=== PATIENT | male | born 1955 | race Caucasian/White ===

== ENCOUNTER 2018-10-02 17:54 | Emergency (ER) | payer OTHER ==
[2018-10-02 18:17] VITALS: BP 133/88
--- NOTE | 2018-10-02 18:57 | ED ---
GI/ HPI - HPI Summary HPI Summary: 63-year-old male with a history of neurogenic bladder since surgery in 1992 presents with slight discomfort over his bladder for the last several days. He states that one week ago he developed cough and cold symptoms and that he has been taking medications such as Sudafed since that time. His cough and cold symptoms have improved. He denies any dysuria or hematuria a persistent pain over his bladder just below the belly button. He is able to urinate but only small amounts. He has minimal discomfort at present. He denies any left or right lower quadrant pain. He previously had his appendix removed. He is not currently on any medications for prostate. - History of Current Complaint Chief Complaint: UCGU Time Seen by Provider: 10/02/18 18:31 Stated Complaint: BLADDER PAIN Hx Obtained From: Patient Pain Intensity: 4 - Allergy/Home Medications Allergies/Adverse Reactions: Allergies Allergy/AdvReac Type Severity Reaction Status Date / Time No Known Allergies Allergy Verified 07/21/13 09:30 PMH/Surg Hx/FS Hx/Imm Hx Endocrine/Hematology History: Denies: Hx Diabetes Cardiovascular History: Reports: Hx Angina - Chest pain with exercise, complete workup ruled out cardiac problem Denies: Hx Coronary Artery Disease, Hx Hypercholesterolemia, Hx Hypertension , Hx Myocardial Infarction, Hx Valvular Heart Disease Respiratory History: Denies: Hx Asthma, Hx Chronic Obstructive Pulmonary Disease (COPD) GI History: Reports: Other GI Disorders - Hx GERD History: Reports: Other Problems/Disorders - neurogenic bladder not requiring medication - Surgical History Surgery Procedure, Year, and Place: Appendectomy age 7, tonsils 1993 Infectious Disease History: No Infectious Disease History: Denies: Traveled Outside the [place] in Last 30 Days - Family History Known Family History: Positive: Non-Contributory - Social History Occupation: Employed Full-time Alcohol Use: Daily Alcohol Amount: 2 allison Substance Use Type: Reports: None Smoking Status (MU): Never Smoked Tobacco Review of Systems Negative: Fever, Chills Eyes: Negative Positive: Nasal Discharge Cardiovascular: Negative Respiratory: Negative Positive: Abdominal Pain. Negative: Vomiting, Diarrhea, Nausea Positive: frequency. Negative: burning, dysuria, discharge, incontinence, pain , urgency All Other Systems Reviewed And Are Negative: Yes Physical Exam Triage Information Reviewed: Yes Vital Signs On Initial Exam: Initial Vitals Temp Pulse Resp BP Pulse Ox 98.8 F 66 12 133/88 97 10/02/18 18:11 10/02/18 18:11 10/02/18 18:11 10/02/18 18:11 10/02/18 18:11 Vital Signs Reviewed: Yes Appearance: Positive: Well-Appearing, No Pain Distress, Well-Nourished Skin: Positive: Warm, Skin Color Reflects Adequate Perfusion, Dry Eyes: Positive: EOMI ENT: Positive: Nasal drainage, TMs normal. Negative: Pharyngeal erythema Neck: Positive: Supple, Nontender Respiratory/Lung Sounds: Positive: Clear to Auscultation Cardiovascular: Positive: RRR Abdomen Description: Positive: Soft, Other: - Mild tenderness over the suprapubic region without rigidity or guarding. Surgical scar in a vertical plane in the right lower quadrant. Bowel Sounds: Positive: Present Male Genital Exam: Positive: Normal Genitalia, No Hernia Musculoskeletal: Positive: Normal, Strength/ROM Intact Neurological: Positive: Normal, Sensory/Motor Intact, Alert, Oriented to Person Place, Time Psychiatric: Positive: Normal Diagnostics - Vital Signs Vital Signs Temp Pulse Resp BP Pulse Ox 10/02/18 18:11 98.8 F 66 12 133/88 97 - Laboratory Diagnostic Studies Comment: Urinalysis: Negative for glucose, bilirubin, ketones , protein, nitrate, leukocyte. Negative for blood. Specific gravity 1.015 Lab Statement: Any lab studies that have been ordered have been reviewed, and results considered in the medical decision making process. - Ultrasound No standard instances Ultrasound Interpretation Completed By: ED Physician - no formal ultrasound was available so I took the patient ultrasound myself and performed a bedside scan limited to evaluation the bladder. 2 views of the bladder were obtained and a residual postvoid volume was 112mls. Prostate is noted to be large. GIGU Course/Dx - Course Course Of Treatment: Patient has history of neurogenic bladder and noted large prostate and postvoid residual of 112 mL's. This is likely due to recent decongestant such as Sudafed. These will be discontinued. He will be placed on Flomax and will follow up with his primary care physician and a urologist. He will return to the ER if he is unable to urinate. - Diagnoses Differential Diagnoses - Male: Other - Urinary tract infection, urinary retention, prostatitis, diverticulitis Provider Diagnoses: Prostatic hypertrophy, Neurogenic bladder, Acute urinary retention, Adverse effect of [id number] medication Discharge - Sign-Out/Discharge Documenting (check all that apply): Patient Departure All imaging exams completed and their final reports reviewed: No Studies - Discharge Plan Condition: Improved Disposition: HOME Prescriptions: Tamsulosin CAP* [Flomax CAP*] 0.4 mg PO BEDTIME #30 cap Patient Education Materials: Urinary Retention in Men (ED), Enlarged Prostate ( BPH) (ED) Referrals: Paulo Velasquez MD [Primary Care Provider] - Anurag Powers MD [Medical Doctor] - Additional Instructions: Call your doctor first thing in the morning to schedule prompt follow-up. Discontinue any decongestant medications. Take 2 of the Flomax tonight. Return to the ER if you're unable to urinate, have uncontrolled pain, develop fever, worse or other concerns. You're also given referral to the urologist. - Billing Disposition and Condition Condition: IMPROVED Disposition: Home - Attestation Statements Document Initiated by Mary Jo: No
== END 2018-10-02 19:15 | disposition home or self-care (01) ==
LOC: UCEAST 17:54
DX: N40.1 Benign prostatic hyperplasia with lower urinary tract symptoms (principal); R33.9 Retention of urine, unspecified; N31.9 Neuromuscular dysfunction of bladder, unspecified; T88.7XXA Unspecified adverse effect of drug or medicament, initial encounter
CPT/HCPCS: 81003; 99212; G0463

== ENCOUNTER 2018-10-03 16:06 | Emergency (ER) | payer OTHER ==
--- NOTE | 2018-10-03 21:06 | ED ---
GI/ HPI - HPI Summary HPI Summary: 63 year old M presenting to [facility] with a chief complaint of worsening urinary retention since yesterday morning, worse since this afternoon. The patient rates the pain 6/10 in severity. Symptoms aggravated by nothing. Symptoms alleviated by nothing. Patient is having a difficulty urinating. He last tried to urinate 30 minutes ago and put out approximately 2 mL. Patient additionally complains of pain at suprapubic area, inferior to umbilicus, radiating across the lower abdomen and to bilateral testicles. Patient notes that the testicular pain started about one week ago. He reports constipation. His last BM was 08:30 today which was smaller than usual. Patient denies hematuria, diarrhea, fever. Patient was seen at [facility] by Dr. Hart yesterday 10/02/18. Patient had post- void residual 112cc urine and enlarged prostate upon Dr. Hart's portable ultrasound exam. Patient was on Sudafed for URI sxs which have since resolved, and he was advised to stop the Sudafed due to side effect of urinary retention, which he did. He was started on Flomax yesterday, and took two doses last pm of the Flomax, as instructed. His last dose of Flomax was 00:00 today. Patient had shafer cath in 1992 for neurogenic bladder following surgery. He has not needed a shafer since that time. Had not been on prostate medications until last pm. Was given urology follow up, but was unable to call yet for follow up, as it is the weekend now. Vital signs while in room: HR 82 bpm, BP 142/77. - History of Current Complaint Chief Complaint: EDUrogenitalProblems Time Seen by Provider: 10/03/18 20:12 Stated Complaint: ABD PAIN Hx Obtained From: Patient, Medical Records - From [facility] visit on 10/02/18 Onset/Duration: Started Days Ago - yesterday morning, Atraumatic, Still Present Timing: Constant Severity: Moderate Current Severity: Severe Pain Intensity: 6 Location of Pain: RLQ, LLQ, Suprapubic Additional Locations for Males: Testicles Pain Characteristics: Dull, Pressure Pain Radiates to: LLQ, RLQ Associated Signs and Symptoms: Positive: Negative - Fever, hematuria, diarrhea, dysuria, Constipation, Abdominal Pain, Other: - difficulty urinating; pain at suprapubic area, inferior to umbilicus, radiating across the lower abdomen and to bilateral testicles; constipation Aggravating Factor(s): Nothing Alleviating Factor(s): Nothing - Allergy/Home Medications Allergies/Adverse Reactions: Allergies Allergy/AdvReac Type Severity Reaction Status Date / Time No Known Allergies Allergy Verified 07/21/13 09:30 PMH/Surg Hx/FS Hx/Imm Hx Previously Healthy: No Endocrine/Hematology History: Denies: Hx Diabetes Cardiovascular History: Reports: Hx Angina - Chest pain with exercise, complete workup ruled out cardiac problem Denies: Hx Coronary Artery Disease, Hx Hypercholesterolemia, Hx Hypertension , Hx Myocardial Infarction, Hx Valvular Heart Disease Respiratory History: Denies: Hx Asthma, Hx Chronic Obstructive Pulmonary Disease (COPD) GI History: Reports: Hx Gastroesophageal Reflux Disease History: Reports: Other Problems/Disorders - neurogenic bladder after surgery not requiring medication or chronic shafer - Surgical History Surgery Procedure, Year, and Place: Appendectomy age 7, tonsils 1993. 1992 neurogenic bladder surgery Infectious Disease History: No Infectious Disease History: Denies: Traveled Outside the [place] in Last 30 Days - Family History Known Family History: Negative: Cardiac Disease - Social History Lives: With Family Alcohol Use: Daily Alcohol Amount: 2 allison Hx Substance Use: No Substance Use Type: Reports: None Hx Tobacco Use: No Smoking Status (MU): Never Smoked Tobacco Review of Systems Negative: Fever Gastrointestinal: Other - constipation Positive: Other - pain at suprapubic area, inferior to umbilicus, radiating across the lower abdomen and to bilateral testicles; constipation. Negative: Diarrhea Positive: see HPI, other - worsening urinary retention, difficulty urinating, pain radiating to both testicles. Negative: hematuria Musculoskeletal: Negative Skin: Negative Neurological: Negative Psychological: Normal All Other Systems Reviewed And Are Negative: Yes Physical Exam - Summary Physical Exam Summary: Appearance: Uncomfortable, moderate pain distress, well-nourished, does not appear toxic Skin: Warm, color reflects adequate perfusion, dry Head: Normal Head/Face inspection, atraumatic Eyes: Conjunctiva clear ENT: Normal inspection Neck: Supple, no nodes, no JVD Respiratory: Lungs clear, normal breath sounds, no respiratory distress Cardio: RRR, No murmur, pulses normal, brisk capillary refill Abdomen: He reports pain in his suprapubic region. Soft, nontender, no masses, top of bladder is palpable 1[address] between pubis and umbilicus. Bladder scan done by nurse Yosef, shows max. 200cc urine. Bowel sounds: Present Musculoskeletal: Strength Intact/ROM intact, no calf tenderness, no edema. Psychological: Normal Neuro: Alert, muscle tone normal, no focal deficit Genital exam chaperoned by nurse Yosef: penis and scrotum and testicles are normal Triage Information Reviewed: Yes Vital Signs On Initial Exam: Initial Vitals Temp Pulse Resp BP Pulse Ox 97.7 F 73 16 130/78 99 10/03/18 16:11 10/03/18 16:11 10/03/18 16:11 10/03/18 16:11 10/03/18 16:11 Vital Signs Reviewed: Yes Diagnostics - Vital Signs Vital Signs Temp Pulse Resp BP Pulse Ox 10/03/18 20:50 92 97 10/03/18 20:48 89 142/77 97 10/03/18 20:36 98.7 F 86 16 136/76 99 10/03/18 19:05 99.8 F 76 12 133/59 100 10/03/18 16:11 97.7 F 73 16 130/78 99 - Laboratory Result Diagrams: 10/03/18 21:26 10/03/18 21:26 Lab Statement: Any lab studies that have been ordered have been reviewed, and results considered in the medical decision making process. Re-Evaluation - Re-Evaluation First Eval Re-Evaluation Time: 22:00 Change: Improved Comment: 18 F coude catheter successfully placed by Allison AMBROCIO, with drainage of 400cc clear urine. Pt feels better. Second Eval Re-Evaluation Time: 22:30 Change: Unchanged Comment: Has feelings of urgency with shafer in place. Shafer has drained an additional 300cc. Pt denies abd pain or testicular pain. Agrees to try pyridium. Agrees with DC with shafer. GIGU Course/Dx - Course Course Of Treatment: Patient medications reviewed this visit. Allergies noted. High blood pressure noted. Bloodwork showed mildly elevated WBC count, elevated CRP, normal renal function, and urine with ketones, no cells or bacteria or nitrates to suggest infection. Patient is discharged with prescription for pyridium for any urgency with shafer in place. Pt will be discharged with shafer to have definite follow up with urology this week. RX for pyridium given. Will not treat for UTI, as urine is normal except for ketones. Pt is advised to continue the flomax as directed previously. - Diagnoses Differential Diagnoses - Male: BPH, Cancer, Dehydration, Prostatitis, Urinary Tract Infection, Other - urinary retention Provider Diagnoses: Abdominal pain, Acute urinary retention, Benign prostate hyperplasia, Urinary catheter insertion/adjustment/removal Discharge - Sign-Out/Discharge Documenting (check all that apply): Patient Departure Patient Received Moderate/Deep Sedation with Procedure: No - Discharge Plan Condition: Stable Disposition: HOME Prescriptions: Phenazopyridine 200 mg (NF) [Pyridium 200 MG tab *] 200 mg PO TID PRN #20 tab PRN Reason: Pain Patient Education Materials: Urinary Retention in Men (ED), Enlarged Prostate ( BPH) (ED), Shafer Catheter Placement and Care (ED) Referrals: Paulo Velasquez MD [Primary Care Provider] - As Soon As Possible Anurag Powers MD [Medical Doctor] - As Soon As Possible Additional Instructions: You had an 18 [place] coude catheter placed, and you drained 400cc of clear yellow urine with relief of most of your symptoms. You were given one dose of pyridium 200mg for the discomfort in your lower abdomen and the continued feeling of urgency. There is a prescription for that at your pharmacy as well. You may also take Tylenol (acetaminophen) for discomfort. Keep the catheter in place until you can be seen by urology this week. Your labs did not show any evidence of renal dysfunction or infection. Your urinalysis showed only 1+ ketones, no blood or white blood cells to indicate infection or bleeding. We will not treat with antibiotics at this time. Drink lots of fluids. Return to the ER if you have any new or worsening symptoms. - Billing Disposition and Condition Condition: STABLE Disposition: Home - Attestation Statements Document Initiated by Scribe: Yes Documenting Scribe: Hetal Sutherland Provider For Whom Mary Jo is Documenting (Include Credential): Cathy Hill MD Scribe Attestation: Hetal Avitia, scribed for Cathy Hill MD on 10/07/18 at 0212. Scribe Documentation Reviewed: Yes Provider Attestation: The documentation as recorded by the Hetal reyes accurately reflects the service I personally performed and the decisions made by me, Cathy Hill MD Status of Scribe Document: Viewed
[2018-10-03 21:32] LABS: ABS Basophils 0 10^3/ul (0-0.2); ABS Eosinophils 0.1 10^3/ul (0-0.6); ABS Lymphocytes 1.2 10^3/ul (1.0-4.8); ABS Monocytes 1.2 10^3/ul (0-0.8); ABS Neutrophils 9.8 10^3/ul (1.5-7.7); ABS Nucleated RBC 0 10^3/ul; Eosinophil % 0.6 %; Hematocrit 40 % (42-52); Hemoglobin 13.2 g/dl (14.0-18.0); Lymphocyte % 9.7 %; Mean Corpuscular HGB Conc 34 g/dl (31-36); Mean Corpuscular Hemoglobin 30 pg (27-31); Mean Corpuscular Volume 91 fL (80-94); Mean Platelet Volume 7.1 fL (7.4-10.4); Nucleated Red Blood Cells % 0; Platelet Count 286 10^3/ul (150-450); Red Blood Count 4.37 10^6/ul (4.00-5.40); Red Cell Distribution Width 13 % (10.5-15); White Blood Count 12.3 10^3/ul (3.5-10.8)
[2018-10-03 21:49] LABS: Albumin/Globulin Ratio 1.5 (1-3); BUN/Creatinine Ratio 14.3 (8-20); C Reactive Protein 33.84 mg/L (<8.01); Calcium 10.1 mg/dL (8.6-10.3); EGFR Non-African American 92.6 (>60); Globulin 2.6 g/dL (2-4); Potassium 3.6 mmol/L (3.5-5.0); Total Bilirubin 0.7 mg/dL (0.2-1.0); Total Protein 6.6 g/dL (6.4-8.9)
[2018-10-03] MEDS ORDERED: Phenazopyridine TAB* 100 MG PO ONE (22:27)
[2018-10-03 22:47] LABS: Urine Appearance Clear; Urine Bilirubin Negative (Negative); Urine Blood Negative (Negative); Urine Color Yellow; Urine Glucose Negative (Negative); Urine Ketones 1+ (Negative); Urine Nitrite Negative (Negative); Urine Protein Negative (Negative); Urine Specific Gravity 1.013 (1.010-1.030); Urine Urobilinogen Negative (Negative)
[2018-10-03 23:28] VITALS: BP 134/78
== END 2018-10-03 23:25 | disposition home or self-care (01) ==
LOC: ED 16:06
DX: N40.1 Benign prostatic hyperplasia with lower urinary tract symptoms (principal); R33.8 Other retention of urine; K59.00 Constipation, unspecified; K21.9 Gastro-esophageal reflux disease without esophagitis
CPT/HCPCS: 36415; 80053; 81003; 85025; 86140; 99283; A9270-GY